=== PATIENT | male | born 1970 | race Caucasian/White ===

== ENCOUNTER 2020-09-13 13:43 | Emergency (ER) | payer MEDICARE, OTHER ==
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
[2020-09-13] MEDS ORDERED: Ibuprofen 800 MG TAB ONE (15:04)
[2020-09-13] MEDS ORDERED: Acetaminophen 500 MG TAB ONE (15:04)
== END 2020-09-13 15:15 | disposition home or self-care (01) ==
LOC: MADERS 13:43
DX: S82.845A Nondisplaced bimalleolar fracture of left lower leg, initial encounter for closed fracture (principal); F17.210 Nicotine dependence, cigarettes, uncomplicated; V89.2XXA Person injured in unspecified motor-vehicle accident, traffic, initial encounter